=== PATIENT | female | born 1940 | race Caucasian/White ===

== ENCOUNTER 2019-10-16 17:00 | Inpatient (IN) | payer MEDICARE, BC, MEDICAID ==
[2019-10-16] MEDS ORDERED: Sodium Chloride 0.9% 10 ML Syringe FLUSH PRN (17:12)
[2019-10-16 18:17] LABS: ANION GAP 14.4 mmol/L (5-15); CHLORIDE,CL 102 mmol/L (98-115); SODIUM,NA 144 mmol/L (136-145)
[2019-10-16] MEDS ORDERED: methylPREDNISolone Sodium Succinate 125 MG/2 ML SDV IVPUSH ONE (19:28)
[2019-10-16] MEDS: Albuterol/Ipratropium 3.0-0.5 MG/3 ML Neb Soln NEB SCH ×2 (20:34→21:33)
[2019-10-16] MEDS: Piperacillin/Tazobactam/Dext 3.375 GM in Premix Bag 1 BAG IV SCH (20:40)
[2019-10-16] MEDS ORDERED: Acetaminophen 325 MG Tab PO PRN (20:41)
[2019-10-16] MEDS ORDERED: Trolamine Salicylate/Aloe Vera 10% Crm 85 GM Tube TOP PRN (20:41)
[2019-10-16] MEDS ORDERED: Sodium Chloride 0.9% 250 ML ONE (20:43)
[2019-10-16] MEDS: Insulin Aspart 100 Units/ML 3 ML Pen SUBCUT SCH ×2 (21:22→22:15)
[2019-10-16] MEDS: Donepezil 10 MG Tab PO SCH (22:05)
[2019-10-16] MEDS: Acetaminophen 650 MG Tab.ER PO SCH (22:05)
[2019-10-16] MEDS: Carboxymethylcellulose Sodium 0.5% Ophth Soln 15 ML Bottle EYEBOTH SCH (22:07)
[2019-10-16] MEDS: OLANZapine 5 MG Tab PO SCH (22:08)
[2019-10-17] MEDS: Albuterol/Ipratropium 3.0-0.5 MG/3 ML Neb Soln NEB SCH ×6 (01:53→20:44)
[2019-10-17] MEDS: Piperacillin/Tazobactam/Dext 3.375 GM in Premix Bag 1 BAG IV SCH ×3 (01:53→14:01)
[2019-10-17] MEDS: Insulin Aspart 100 Units/ML 3 ML Pen SUBCUT SCH ×4 (07:40→21:04)
[2019-10-17 07:51] LABS: ANION GAP 12.1 mmol/L (5-15)
[2019-10-17 08:05] LABS: HEMOGLOBIN A1C 5.7 % (4.3-5.7)
[2019-10-17] MEDS: Aspirin 81 MG Tab.EC PO SCH (08:41)
[2019-10-17] MEDS: Folic Acid 1 MG Tab PO SCH (08:41)
[2019-10-17] MEDS: Potassium Chloride 10 MEQ Tab.ER PO SCH ×2 (08:41→17:39)
[2019-10-17] MEDS: Oxybutynin 5 MG Tab.ER PO SCH (08:41)
[2019-10-17] MEDS: Cholecalciferol (Vitamin D3) 25 MCG Tab PO SCH (08:42)
[2019-10-17] MEDS: Acetaminophen 650 MG Tab.ER PO SCH ×3 (08:42→20:43)
[2019-10-17] MEDS: buPROPion 150 MG Tab.ER PO SCH (08:43)
[2019-10-17] MEDS: Lisinopril 20 MG Tab PO SCH (08:43)
[2019-10-17] MEDS: Donepezil 10 MG Tab PO SCH ×2 (08:43→20:44)
[2019-10-17] MEDS: Carboxymethylcellulose Sodium 0.5% Ophth Soln 15 ML Bottle EYEBOTH SCH ×3 (08:49→21:30)
[2019-10-17] MEDS ORDERED: Non-Formulary Medication 1 Each (Mineral Oil/Petrolatum 1 APPLIC) TOP SCH (09:00)
[2019-10-17] MEDS ORDERED: buPROPion 300 MG Tab.ER PO SCH (09:00)
--- NOTE | 2019-10-17 12:23 | PCM.PN ---
- General Info Date of Service: 10/17/19 Functional Status: Reports: Pain Controlled, Tolerating Diet, Ambulating, Other (O2 Saturations ambulatory room air 95 to 97%). Denies: New Symptoms - Review of Systems General: Denies: Fever, Weakness, Fatigue, Malaise, Chills HEENT: Reports: No Symptoms Pulmonary: Reports: Cough. Denies: Shortness of Breath, Sputum Cardiovascular: Reports: Edema. Denies: Dyspnea on Exertion - Patient Data Vitals - Most Recent: Last Vital Signs Temp 96.8 F 10/17/19 10:53 Pulse 70 10/17/19 10:53 Resp 16 10/17/19 10:53 BP 121/53 L 10/17/19 10:53 Pulse Ox 92 L 10/17/19 10:53 Weight - Most Recent: 233 lb 12.8 oz I&O - Last 24 Hours: Intake & Output 10/16/19 10/17/19 10/17/19 22:59 06:59 14:59 Intake Total 475 200 Output Total 500 900 Balance -25 -700 Lab Results Last 24 Hours: Laboratory Results - last 24 hr 10/16/19 10/16/19 10/16/19 Range/Units 17:45 17:45 17:45 WBC 8.04 (5.00-10.00) 10^3/uL RBC 3.40 L (3.80-5.50) 10^6/uL Hgb 11.5 L (12.0-16.0) g/dL Hct 36.6 L (37.0-47.0) % MCV 107.6 H (82.0-92.0) fL MCH 33.8 H (27.0-31.0) pg MCHC 31.4 L (32.0-36.0) g/dL RDW 15.7 H (11.5-14.5) % Plt Count 161 (150-400) 10^3/uL MPV 9.5 (7.4-10.4) fL Immature Gran % (Auto) 0.2 (0.0-5.0) % Neut % (Auto) 81.6 H (50.0-70.0) % Lymph % (Auto) 8.5 L (20.0-40.0) % Lane % (Auto) 7.1 (2.0-8.0) % Eos % (Auto) 2.2 (1.0-3.0) % Baso % (Auto) 0.4 (0.0-1.0) % Immature Gran # (Auto) 0.02 (0.00-0.50) 10^3/uL Neut # (Auto) 6.56 (2.50-7.00) 10^3/uL Lymph # (Auto) 0.68 L (1.00-4.00) 10^3/uL Lane # (Auto) 0.57 (0.10-0.80) 10^3/uL Eos # (Auto) 0.18 (0.10-0.30) 10^3/uL Baso # (Auto) 0.03 (0.00-0.10) 10^3/uL Macrocytosis 1+ slight ESR (0-20) mm/hr Sodium 144 (136-145) mmol/L Potassium 4.1 (3.3-5.3) mmol/L Chloride 102 (98-115) mmol/L Carbon Dioxide 31.7 (21.0-32.0) mmol/L Anion Gap 14.4 (5-15) mmol/L BUN 24 (6-25) mg/dL Creatinine 1.36 H (0.51-1.17) mg/dL Est Cr Clr Drug Dosing TNP Estimated GFR (MDRD) 37 mL/min Glucose 51 L (75 - 99) mg/dL POC Glucose (74-106) mg/dl Hemoglobin A1c (4.3-5.7) % Lactic Acid (0.4-2.0) mmol/L Calcium 10.0 (8.7-10.3) mg/dL B-Natriuretic Peptide 123 H (0-100) pg/mL 10/16/19 10/16/19 10/16/19 Range/Units 17:45 17:45 18:34 WBC (5.00-10.00) 10^3/uL RBC (3.80-5.50) 10^6/uL Hgb (12.0-16.0) g/dL Hct (37.0-47.0) % MCV (82.0-92.0) fL MCH (27.0-31.0) pg MCHC (32.0-36.0) g/dL RDW (11.5-14.5) % Plt Count (150-400) 10^3/uL MPV (7.4-10.4) fL Immature Gran % (Auto) (0.0-5.0) % Neut % (Auto) (50.0-70.0) % Lymph % (Auto) (20.0-40.0) % Lane % (Auto) (2.0-8.0) % Eos % (Auto) (1.0-3.0) % Baso % (Auto) (0.0-1.0) % Immature Gran # (Auto) (0.00-0.50) 10^3/uL Neut # (Auto) (2.50-7.00) 10^3/uL Lymph # (Auto) (1.00-4.00) 10^3/uL Lane # (Auto) (0.10-0.80) 10^3/uL Eos # (Auto) (0.10-0.30) 10^3/uL Baso # (Auto) (0.00-0.10) 10^3/uL Macrocytosis ESR 49 H (0-20) mm/hr Sodium (136-145) mmol/L Potassium (3.3-5.3) mmol/L Chloride (98-115) mmol/L Carbon Dioxide (21.0-32.0) mmol/L Anion Gap (5-15) mmol/L BUN (6-25) mg/dL Creatinine (0.51-1.17) mg/dL Est Cr Clr Drug Dosing Estimated GFR (MDRD) mL/min Glucose (75 - 99) mg/dL POC Glucose 80 (74-106) mg/dl Hemoglobin A1c (4.3-5.7) % Lactic Acid 1.5 (0.4-2.0) mmol/L Calcium (8.7-10.3) mg/dL B-Natriuretic Peptide (0-100) pg/mL 10/16/19 10/17/19 10/17/19 Range/Units 21:16 07:15 07:15 WBC 6.24 (5.00-10.00) 10^3/uL RBC 3.19 L (3.80-5.50) 10^6/uL Hgb 10.7 L (12.0-16.0) g/dL Hct 34.8 L (37.0-47.0) % MCV 109.1 H (82.0-92.0) fL MCH 33.5 H (27.0-31.0) pg MCHC 30.7 L (32.0-36.0) g/dL RDW 16.3 H (11.5-14.5) % Plt Count 153 (150-400) 10^3/uL MPV 10.2 (7.4-10.4) fL Immature Gran % (Auto) 0.3 (0.0-5.0) % Neut % (Auto) 79.2 H (50.0-70.0) % Lymph % (Auto) 8.8 L (20.0-40.0) % Lane % (Auto) 9.0 H (2.0-8.0) % Eos % (Auto) 2.2 (1.0-3.0) % Baso % (Auto) 0.5 (0.0-1.0) % Immature Gran # (Auto) 0.02 (0.00-0.50) 10^3/uL Neut # (Auto) 4.94 (2.50-7.00) 10^3/uL Lymph # (Auto) 0.55 L (1.00-4.00) 10^3/uL Lane # (Auto) 0.56 (0.10-0.80) 10^3/uL Eos # (Auto) 0.14 (0.10-0.30) 10^3/uL Baso # (Auto) 0.03 (0.00-0.10) 10^3/uL Macrocytosis 1+ slight ESR (0-20) mm/hr Sodium 143 (136-145) mmol/L Potassium 4.1 (3.3-5.3) mmol/L Chloride 103 (98-115) mmol/L Carbon Dioxide 32.0 (21.0-32.0) mmol/L Anion Gap 12.1 (5-15) mmol/L BUN 22 (6-25) mg/dL Creatinine 1.41 H (0.51-1.17) mg/dL Est Cr Clr Drug Dosing 28.63 Estimated GFR (MDRD) 36 mL/min Glucose 118 H (75 - 99) mg/dL POC Glucose 173 H (74-106) mg/dl Hemoglobin A1c 5.7 (4.3-5.7) % Lactic Acid (0.4-2.0) mmol/L Calcium 9.4 (8.7-10.3) mg/dL B-Natriuretic Peptide (0-100) pg/mL 10/17/19 10/17/19 Range/Units 07:15 07:36 WBC (5.00-10.00) 10^3/uL RBC (3.80-5.50) 10^6/uL Hgb (12.0-16.0) g/dL Hct (37.0-47.0) % MCV (82.0-92.0) fL MCH (27.0-31.0) pg MCHC (32.0-36.0) g/dL RDW (11.5-14.5) % Plt Count (150-400) 10^3/uL MPV (7.4-10.4) fL Immature Gran % (Auto) (0.0-5.0) % Neut % (Auto) (50.0-70.0) % Lymph % (Auto) (20.0-40.0) % Lane % (Auto) (2.0-8.0) % Eos % (Auto) (1.0-3.0) % Baso % (Auto) (0.0-1.0) % Immature Gran # (Auto) (0.00-0.50) 10^3/uL Neut # (Auto) (2.50-7.00) 10^3/uL Lymph # (Auto) (1.00-4.00) 10^3/uL Lane # (Auto) (0.10-0.80) 10^3/uL Eos # (Auto) (0.10-0.30) 10^3/uL Baso # (Auto) (0.00-0.10) 10^3/uL Macrocytosis ESR 41 H (0-20) mm/hr Sodium (136-145) mmol/L Potassium (3.3-5.3) mmol/L Chloride (98-115) mmol/L Carbon Dioxide (21.0-32.0) mmol/L Anion Gap (5-15) mmol/L BUN (6-25) mg/dL Creatinine (0.51-1.17) mg/dL Est Cr Clr Drug Dosing Estimated GFR (MDRD) mL/min Glucose (75 - 99) mg/dL POC Glucose 104 (74-106) mg/dl Hemoglobin A1c (4.3-5.7) % Lactic Acid (0.4-2.0) mmol/L Calcium (8.7-10.3) mg/dL B-Natriuretic Peptide (0-100) pg/mL Arpan Results Last 24 Hours: Microbiology 10/16/19 21:15 Influenza Type A Antigen Screen - Final Nasal, Unspecified NEGATIVE INFLUENZA A VIRUS AG REFERENCE RANGE: NEGATIVE Influenza Type B Antigen Screen - Final NEGATIVE INFLUENZA B VIRUS AG REFERENCE RANGE: NEGATIVE Med Orders - Current: Current Medications Acetaminophen (Tylenol) 650 mg PO Q4H PRN PRN Reason: Pain or fever Acetaminophen (Tylenol Arthritis Pain) 650 mg PO TID [facility] Last Admin: 10/17/19 08:42 Dose: 650 mg Albuterol/Ipratropium (Duoneb 3.0-0.5 Mg/3 Ml) 3 ml NEB Q4HRRT [facility] Last Admin: 10/17/19 09:12 Dose: 3 ml Artificial Tears (Refresh Tears 0.5%) 0 ml EYEBOTH TID [facility] Last Admin: 10/17/19 08:49 Dose: 1 drop Aspirin (Halfprin) 81 mg PO DAILY [facility] Last Admin: 10/17/19 08:41 Dose: 81 mg Bupropion HCl (Wellbutrin Xl) 300 mg PO DAILY [facility] Last Admin: 10/17/19 08:43 Dose: 300 mg Cholecalciferol (Vitamin D3) 50 mcg PO DAILY [facility] Last Admin: 10/17/19 08:42 Dose: 50 mcg Donepezil HCl (Aricept) 10 mg PO BID [facility] Last Admin: 10/17/19 08:43 Dose: 10 mg Folic Acid (Folic Acid) 1 mg PO DAILY [facility] Last Admin: 10/17/19 08:41 Dose: 1 mg Guaifenesin/Phenylephrine HCl (Robitussin Dm) 10 ml PO Q4H PRN PRN Reason: Cough Piperacillin/Tazobactam/ (Dextrose 3.375 gm/ Premix) 50 mls @ 100 mls/hr IV Q6H [facility] Last Admin: 10/17/19 07:07 Dose: 100 mls/hr Insulin Aspart (Novolog) 0 unit SUBCUT WITHMEALSANDBED [facility]; Protocol Last Admin: 10/17/19 07:40 Dose: Not Given Lamotrigine (Lamotrigine) 100 mg PO DAILY@2000 [facility] Lisinopril (Prinivil) 20 mg PO DAILY [facility] Last Admin: 10/17/19 08:43 Dose: 20 mg Multivitamins/Minerals (Ocuvite) 1 each PO DAILY@1800 [facility] Non-Formulary Medication (Dulaglutide [Trulicity]) 1.5 mg SUBCUT WE@2000 [facility] Non-Formulary Medication (Mineral Oil/Petrolatum) 1 applic TOP DAILY [facility] Olanzapine (Zyprexa) 15 mg PO DAILY@2100 [facility] Last Admin: 10/16/19 22:08 Dose: 15 mg Omeprazole (Omeprazole) 20 mg PO Q48H [facility] Oxybutynin Chloride (Oxybutynin Er) 10 mg PO DAILY [facility] Last Admin: 10/17/19 08:41 Dose: 10 mg Potassium Chloride (Klor-Con 10) 20 meq PO DAILY@1800 [facility] Potassium Chloride (Klor-Con 10) 40 meq PO DAILY [facility] Last Admin: 10/17/19 08:41 Dose: 40 meq Simvastatin (Zocor) 10 mg PO DAILY@1800 [facility] Sodium Chloride (Saline Flush) 10 ml FLUSH Q8HR PRN PRN Reason: keep vein open Trolamine Salicylate (Aspercreme 10%) 0 gm TOP TID PRN PRN Reason: Pain Discontinued Medications Bupropion HCl (Wellbutrin Xl) 300 mg PO DAILY [facility] Sodium Chloride (Normal Saline) Confirm Administered Dose 250 mls @ as directed .ROUTE .STK-MED ONE Stop: 10/16/19 20:44 Last Admin: 10/16/19 20:20 Dose: 25 mls/hr Methotrexate (Methotrexate) 10 mg PO Q7D [facility] Methylprednisolone Sodium Succinate (Solu-Medrol) 40 mg IVPUSH ONETIME ONE Stop: 10/16/19 19:29 Last Admin: 10/16/19 20:39 Dose: 40 mg Sepsis Event Note - Evaluation Sepsis Screening Result: No Definite Risk - Focused Exam Vital Signs: Vital Signs Temp Pulse Resp BP BP BP Pulse Ox 10/17/19 10:53 96.8 F 70 16 121/53 L 92 L 10/17/19 09:12 76 10/17/19 09:10 10/17/19 08:43 116/64 10/17/19 06:52 96.7 F 76 22 H 103/58 L 92 L 10/17/19 05:40 76 10/17/19 03:00 97.9 F 72 20 108/49 L 94 L 10/17/19 01:54 74 Pulse Ox 10/17/19 10:53 10/17/19 09:12 93 L 10/17/19 09:10 93 L 10/17/19 08:43 10/17/19 06:52 10/17/19 05:40 94 L 10/17/19 03:00 10/17/19 01:54 Date Exam was Performed: 10/17/19 Time Exam was Performed: 11:46 - Problem List Review Problem List Initiated/Reviewed/Updated: Yes - Plan Plan:: History summary Ms Friedman is severely obese 79-year-old female who resides in LTC was admitted into inpatient status by Jocelynn Burnett NP secondary hypoxia related to ongoing ~3 day of cough, mucus production. custodial records reported patient having increased shortness of breath, mucus production with temperatures up to 101. Patient has approximately 20-year pack year history of smoker however quit approximately 5 years ago. She denotes underlying COPD and uses CESAR/AC PRN, which has not provided her any relief of her shortness of breath. Chest x-ray no acute processes, no cardiomegaly. No echocardiogram on file Hospital course to date This morning patient ambulatory in room oxygen saturations 95 to 97% on room air. Yesterday upon admission had blood sugar of 51. Negative influenza A/B, normal white count however elevated neutrophilia around 82%, ESR high however trending down, creatinine 1.41--beta from 1.36 on admission. BNP 123 normal lactic acid, Chest x-ray no acute processes, no cardiomegaly, however review chest x-rays 2018 demonstrated borderline cardiomegaly Primary hospital problems --Rule out obesity hypoventilation syndrome, serum bicarbonate level and ABG to assess for any hypercapnia --Questionable COPD --Type 2 DM: with hypoglycema, HOLD Long acting insulin, reduce prandial by 25 % today. home regimen includes, Novolog 14 units AM, 22 units at noon, 14 units PM; Trulicity 1.5mg weekly, Tresiba 76 units daily --Anemia, macrocytic with anisocytosis, elevated retic ~6 months ago, upon discharge will provide PCP recommendations Chronic hospital problems --Chronic ischemic heart disease: ASA 81mg daily --Essential HTN: Lisinopril 20mg daily --Pedal edema/weight gain: Furosemide 20mg daily, metolazone 2.5mg twice a week --Hypokalemia: Potassium 40meq in the AM and 20meq in the PM --Chronic venous insufficiency --Pure hypercholesterolemia: Simvastatin 10mg daily --GERD: Omeprazole 20mg EVERY OTHER DAY --Rheumatoid arthritis: seropositive rheumatoid arthritis, Methotrexate 10mg weekly, prednisone 5mg daily, Acetaminophen ER 650mg three times daily Folic acid 1mg daily for folate deficiency related to methotrexate --Mixed incontinence: oxybutynin ER 10mg daily --Bipolar II disorder/Schizophrenia/Personality disorder: Olanzapine 15mg daily and lamotrigine 100mg daily, Dr Brooks follows. --Drug induced subacute dyskinesia --Alzheimer's disease/Dementia: Donepezil 10mg twice daily --HERNAN: Wellbutrin XL 300mg daily --H/O malignant neoplasm of the breast --Supplements: Vitamin D 2000 units daily --Macular degeneration: Ocuvite daily and Refresh tears Disposition/overall plan --Rule out obesity hypoventilation syndrome, serum bicarbonate level and ABG to assess for any hypercapnia --T2 DM with hypoglycema, HOLD Long acting insulin, reduce prandial by 25% today. --Potential discharge for morning
[2019-10-17 12:46] LABS: BASE EXCESS ARTERIAL 6 mmol/L (-2-3); O2 SATURATION ARTERIAL 93 % (95-98); PCO2 ARTERIAL 58 mmHG (35-45)
[2019-10-17 12:48] LABS: O2 DELIVERY DEVICE NASAL CANNULA; O2 FLOW RATE 2 L/min
[2019-10-17 12:54] LABS: PO2 ARTERIAL 74 mmHG (80-105)
[2019-10-17] MEDS: Lutein/Minerals/Vitamins A, C & E Tab PO SCH (17:39)
[2019-10-17] MEDS: Simvastatin 10 MG Tab PO SCH (17:39)
[2019-10-17] MEDS: guaiFENesin/Dextromethorphan 100-10 MG/5 ML Soln 5 ML Cup PO PRN (20:44)
[2019-10-17] MEDS: OLANZapine 5 MG Tab PO SCH (20:44)
[2019-10-17] MEDS: lamoTRIgine 100 MG Tab PO SCH (20:44)
[2019-10-17] MEDS ORDERED: Insulin Glargine,Human Rec. Analog 100 Units/ML 3 ML Pen SUBCUT ONE (21:00)
[2019-10-18] MEDS: Albuterol/Ipratropium 3.0-0.5 MG/3 ML Neb Soln NEB SCH ×6 (01:29→22:54)
[2019-10-18] MEDS: guaiFENesin/Dextromethorphan 100-10 MG/5 ML Soln 5 ML Cup PO PRN ×2 (01:36→23:03)
[2019-10-18] MEDS: Insulin Aspart 100 Units/ML 3 ML Pen SUBCUT SCH ×4 (07:58→21:05)
[2019-10-18] MEDS: Cholecalciferol (Vitamin D3) 25 MCG Tab PO SCH (08:28)
[2019-10-18] MEDS: Potassium Chloride 10 MEQ Tab.ER PO SCH ×2 (08:28→17:35)
[2019-10-18] MEDS: Acetaminophen 650 MG Tab.ER PO SCH ×3 (08:29→20:42)
[2019-10-18] MEDS: Aspirin 81 MG Tab.EC PO SCH (08:29)
[2019-10-18] MEDS: buPROPion 150 MG Tab.ER PO SCH (08:29)
[2019-10-18] MEDS: Folic Acid 1 MG Tab PO SCH (08:29)
[2019-10-18] MEDS: Oxybutynin 5 MG Tab.ER PO SCH (08:29)
[2019-10-18] MEDS: Donepezil 10 MG Tab PO SCH ×2 (08:30→20:43)
[2019-10-18] MEDS: Omeprazole 20 MG Cap.CR PO SCH (08:30)
[2019-10-18] MEDS: Lisinopril 20 MG Tab PO SCH (08:32)
[2019-10-18] MEDS: Carboxymethylcellulose Sodium 0.5% Ophth Soln 15 ML Bottle EYEBOTH SCH ×3 (09:05→20:52)
[2019-10-18] MEDS ORDERED: Albuterol 0.083% 2.5 MG/3 ML Neb Soln NEB PRN (10:10)
--- NOTE | 2019-10-18 10:12 | PCM.PN ---
- General Info Date of Service: 10/18/19 Functional Status: Reports: Pain Controlled, Tolerating Diet, Urinating. Denies : Ambulating - Review of Systems General: Denies: Fever, Weakness, Fatigue, Malaise, Chills HEENT: Reports: No Symptoms Pulmonary: Reports: Shortness of Breath, Cough, Wheezing. Denies: Sputum Cardiovascular: Reports: Dyspnea on Exertion. Denies: Palpitations, Orthopnea, Lightheadedness Gastrointestinal: Reports: No Symptoms Genitourinary: Reports: No Symptoms Musculoskeletal: Reports: No Symptoms Skin: Reports: No Symptoms Neurological: Denies: Confusion Psychiatric: Reports: No Symptoms - Patient Data Vitals - Most Recent: Last Vital Signs Temp 98.3 F 10/18/19 06:22 Pulse 87 10/18/19 06:22 Resp 20 10/18/19 06:22 BP 140/70 10/18/19 08:32 Pulse Ox 80 L 10/18/19 08:55 Weight - Most Recent: 233 lb 12.8 oz I&O - Last 24 Hours: Intake & Output 10/17/19 10/18/19 10/18/19 22:59 06:59 14:59 Intake Total 975 0 Output Total 600 350 Balance 375 -350 Lab Results Last 24 Hours: Laboratory Results - last 24 hr 10/16/19 10/17/19 10/17/19 Range/Units 17:45 11:50 12:40 WBC (5.00-10.00) 10^3/uL RBC (3.80-5.50) 10^6/uL Hgb (12.0-16.0) g/dL Hct (37.0-47.0) % MCV (82.0-92.0) fL MCH (27.0-31.0) pg MCHC (32.0-36.0) g/dL RDW (11.5-14.5) % RDW Coeff of Holli Plt Count (150-400) 10^3/uL MPV (7.4-10.4) fL Neutrophils % (Manual) (50-70) % Lymphocytes % (Manual) (20-40) % Monocytes % (Manual) (2-8) % Absolute Neutrophils Lymphocytes # (Manual) Monocytes # (Manual) ABG pH 7.35 (7.35-7.45) ABG pCO2 58 H (35-45) mmHG ABG pO2 74 L (80-105) mmHG ABG HCO3 32.0 H (22-26) mmol/L ABG Total CO2 34 H (23-27) mmol/L ABG O2 Saturation 93 L (95-98) % ABG Base Excess 6 H (-2-3) mmol/L O2 Delivery Device Nasal cannula Oxygen Flow Rate 2 L/min POC Glucose 241 H (74-106) mg/dl Procalcitonin 0.06 (<0.10) ng/mL 10/17/19 10/18/19 10/18/19 Range/Units 17:41 07:15 07:56 WBC 7.04 (5.00-10.00) 10^3/uL RBC 3.35 L (3.80-5.50) 10^6/uL Hgb 11.5 L (12.0-16.0) g/dL Hct 36.3 L (37.0-47.0) % MCV 108.4 H (82.0-92.0) fL MCH 34.3 H (27.0-31.0) pg MCHC 31.7 L (32.0-36.0) g/dL RDW 16.7 H (11.5-14.5) % RDW Coeff of Holli 16.7 Plt Count 125 L (150-400) 10^3/uL MPV 10.2 (7.4-10.4) fL Neutrophils % (Manual) 77 H (50-70) % Lymphocytes % (Manual) 11 L (20-40) % Monocytes % (Manual) 12 H (2-8) % Absolute Neutrophils 5.4208 Lymphocytes # (Manual) 0.7744 Monocytes # (Manual) 0.8448 ABG pH (7.35-7.45) ABG pCO2 (35-45) mmHG ABG pO2 (80-105) mmHG ABG HCO3 (22-26) mmol/L ABG Total CO2 (23-27) mmol/L ABG O2 Saturation (95-98) % ABG Base Excess (-2-3) mmol/L O2 Delivery Device Oxygen Flow Rate L/min POC Glucose 138 H 139 H (74-106) mg/dl Procalcitonin (<0.10) ng/mL Arpan Results Last 24 Hours: Microbiology 10/17/19 08:50 Gram Stain - Final Sputum - Expectorated 10/16/19 18:40 Aerobic Blood Culture - Preliminary Blood - Venous - Lab Draw NO GROWTH AFTER 1 DAY Anaerobic Blood Culture - Preliminary NO GROWTH AFTER 1 DAY 10/16/19 17:45 Aerobic Blood Culture - Preliminary Blood - Venous NO GROWTH AFTER 1 DAY Anaerobic Blood Culture - Preliminary NO GROWTH AFTER 1 DAY Med Orders - Current: Current Medications Acetaminophen (Tylenol) 650 mg PO Q4H PRN PRN Reason: Pain or fever Acetaminophen (Tylenol Arthritis Pain) 650 mg PO TID [facility] Last Admin: 10/18/19 08:29 Dose: 650 mg Albuterol/Ipratropium (Duoneb 3.0-0.5 Mg/3 Ml) 3 ml NEB Q4HRRT [facility] Last Admin: 10/18/19 09:12 Dose: 3 ml Artificial Tears (Refresh Tears 0.5%) 0 ml EYEBOTH TID [facility] Last Admin: 10/18/19 09:05 Dose: 1 drop Aspirin (Halfprin) 81 mg PO DAILY [facility] Last Admin: 10/18/19 08:29 Dose: 81 mg Bupropion HCl (Wellbutrin Xl) 300 mg PO DAILY [facility] Last Admin: 10/18/19 08:29 Dose: 300 mg Cholecalciferol (Vitamin D3) 50 mcg PO DAILY [facility] Last Admin: 10/18/19 08:28 Dose: 50 mcg Donepezil HCl (Aricept) 10 mg PO BID [facility] Last Admin: 10/18/19 08:30 Dose: 10 mg Folic Acid (Folic Acid) 1 mg PO DAILY [facility] Last Admin: 10/18/19 08:29 Dose: 1 mg Guaifenesin/Phenylephrine HCl (Robitussin Dm) 10 ml PO Q4H PRN PRN Reason: Cough Last Admin: 10/18/19 01:36 Dose: 10 ml Insulin Aspart (Novolog) 0 unit SUBCUT WITHMEALSANDBED [facility]; Protocol Last Admin: 10/18/19 07:58 Dose: Not Given Lamotrigine (Lamotrigine) 100 mg PO DAILY@2000 [facility] Last Admin: 10/17/19 20:44 Dose: 100 mg Lisinopril (Prinivil) 20 mg PO DAILY [facility] Last Admin: 10/18/19 08:32 Dose: 20 mg Multivitamins/Minerals (Ocuvite) 1 each PO DAILY@1800 [facility] Last Admin: 10/17/19 17:39 Dose: 1 each Non-Formulary Medication (Dulaglutide [Trulicity]) 1.5 mg SUBCUT WE@2000 [facility] Non-Formulary Medication (Mineral Oil/Petrolatum) 1 applic TOP DAILY [facility] Olanzapine (Zyprexa) 15 mg PO DAILY@2100 [facility] Last Admin: 10/17/19 20:44 Dose: 15 mg Omeprazole (Omeprazole) 20 mg PO Q48H [facility] Last Admin: 10/18/19 08:30 Dose: 20 mg Oxybutynin Chloride (Oxybutynin Er) 10 mg PO DAILY [facility] Last Admin: 10/18/19 08:29 Dose: 10 mg Potassium Chloride (Klor-Con 10) 20 meq PO DAILY@1800 [facility] Last Admin: 10/17/19 17:39 Dose: 20 meq Potassium Chloride (Klor-Con 10) 40 meq PO DAILY [facility] Last Admin: 10/18/19 08:28 Dose: 40 meq Simvastatin (Zocor) 10 mg PO DAILY@1800 [facility] Last Admin: 10/17/19 17:39 Dose: 10 mg Sodium Chloride (Saline Flush) 10 ml FLUSH Q8HR PRN PRN Reason: keep vein open Trolamine Salicylate (Aspercreme 10%) 0 gm TOP TID PRN PRN Reason: Pain Discontinued Medications Bupropion HCl (Wellbutrin Xl) 300 mg PO DAILY [facility] Piperacillin/Tazobactam/ (Dextrose 3.375 gm/ Premix) 50 mls @ 100 mls/hr IV Q6H [facility] Last Admin: 10/17/19 14:01 Dose: 100 mls/hr Sodium Chloride (Normal Saline) Confirm Administered Dose 250 mls @ as directed .ROUTE .STK-MED ONE Stop: 10/16/19 20:44 Last Admin: 10/16/19 20:20 Dose: 25 mls/hr Insulin Glargine (Lantus Solostar) 15 units SUBCUT ONETIME ONE Stop: 10/17/19 21:01 Last Admin: 10/17/19 21:03 Dose: 15 units Methotrexate (Methotrexate) 10 mg PO Q7D [facility] Methylprednisolone Sodium Succinate (Solu-Medrol) 40 mg IVPUSH ONETIME ONE Stop: 10/16/19 19:29 Last Admin: 10/16/19 20:39 Dose: 40 mg - Exam Quality Assessment: Supplemental Oxygen General: Alert, Oriented, Cooperative, No Acute Distress Lungs: Rhonchi, Wheezing Cardiovascular: Regular Rate, Regular Rhythm GI/Abdominal Exam: No: Distended, Guarding, Rigid (Female) Exam: Deferred Extremities: No Pedal Edema Peripheral Pulses: 2+: Radial (L), Radial (R) Skin: Warm, Dry, Intact Psy/Mental Status: Alert, Normal Affect, Normal Mood Sepsis Event Note - Evaluation Sepsis Screening Result: No Definite Risk - Focused Exam Vital Signs: Vital Signs Temp Pulse Resp BP BP Pulse Ox Pulse Ox 10/18/19 08:55 10/18/19 08:32 140/70 10/18/19 06:22 98.3 F 87 20 139/69 91 L 10/18/19 05:23 84 92 L 10/18/19 05:21 92 L 10/18/19 03:30 90 L 10/18/19 03:00 98.5 F 82 20 136/70 86 L 10/18/19 01:31 80 10/17/19 23:00 98.3 F 82 20 133/62 92 L Pulse Ox 10/18/19 08:55 80 L 10/18/19 08:32 10/18/19 06:22 10/18/19 05:23 10/18/19 05:21 10/18/19 03:30 10/18/19 03:00 10/18/19 01:31 10/17/19 23:00 Date Exam was Performed: 10/18/19 Time Exam was Performed: 10:57 - Problem List Review Problem List Initiated/Reviewed/Updated: Yes - My Orders Last 24 Hours: My Active Orders 10/18/19 09:41 CXR [Chest 2V] [CR] Routine - Plan Plan:: History summary Ms Friedman is severely obese 79-year-old female who resides in LTC was admitted into inpatient status by Jocelynn Burnett NP secondary hypoxia related to ongoing ~3 day of cough, mucus production. halfway records reported patient having increased shortness of breath, mucus production with temperatures up to 101. Patient has approximately 20-year pack year history of smoker however quit approximately 5 years ago. She denotes underlying COPD and uses CESAR/AC PRN, which has not provided her any relief of her shortness of breath. Chest x-ray no acute processes, no cardiomegaly. No echocardiogram on file Hospital course to date Day 1: This morning patient ambulatory in room oxygen saturations 95 to 97% on room air. Yesterday upon admission had blood sugar of 51. Negative influenza A /B, normal white count however elevated neutrophilia around 82%, ESR high however trending down, creatinine 1.41--beta from 1.36 on admission. BNP 123 normal lactic acid, Chest x-ray no acute processes, no cardiomegaly, however review chest x-rays 2018 demonstrated borderline cardiomegaly Day 2: Ambulate the patient without oxygen desats 80, response to 92% with oxygen,. ABG yesterday concerning for hypercapnia [place] sodium bicarb and CO2- -suggetive of OHS however no formal PFTs, overnight oximetry and with recent URI along with nonambulatory state due to hip--mixed picture. Overall feels better, ongoing cough with rhonchus today. Primary hospital problems --Suspect OHS with multifactorial components i.e obestiy, limited mobility, underlying pulm dz/cardiac dz with suspect CHF, JOSHUA, hypercapnia. --Questionable COPD --Heart Failure, --Type 2 DM: resolved, resume Long acting insulin, and prandial home regimen includes, Novolog 14 units AM, 22 units at noon, 14 units PM; Trulicity 1.5mg weekly, Tresiba 76 units daily --Anemia, macrocytic with anisocytosis, elevated retic ~6 months ago, upon discharge will provide PCP recommendations Chronic hospital problems --Chronic ischemic heart disease: ASA 81mg daily --Essential HTN: Lisinopril 20mg daily --Pedal edema/weight gain: Furosemide 20mg daily, metolazone 2.5mg twice a week --Hypokalemia: Potassium 40meq in the AM and 20meq in the PM --Chronic venous insufficiency --Pure hypercholesterolemia: Simvastatin 10mg daily --GERD: Omeprazole 20mg EVERY OTHER DAY --Rheumatoid arthritis: seropositive rheumatoid arthritis, Methotrexate 10mg weekly, prednisone 5mg daily, Acetaminophen ER 650mg three times daily Folic acid 1mg daily for folate deficiency related to methotrexate --Mixed incontinence: oxybutynin ER 10mg daily --Bipolar II disorder/Schizophrenia/Personality disorder: Olanzapine 15mg daily and lamotrigine 100mg daily, Dr Todd corbett. --Drug induced subacute dyskinesia --Alzheimer's disease/Dementia: Donepezil 10mg twice daily --HERNAN: Wellbutrin XL 300mg daily --H/O malignant neoplasm of the breast --Supplements: Vitamin D 2000 units daily --Macular degeneration: Ocuvite daily and Refresh tears Disposition/overall plan --Reduce duo nebs to Q6 as Ipratropium likely causing paradoxical bronchospasms --Add MONO therapy Albuterol PRN --Add Pulmicort --Repeat Cxr today --Lasix today --BNP --Will c/s [facility] for overnight oximetry as I suspect she may need CPAP due to her daytime hypercapnia, --Potential discharge for morning, will need Oxygen
--- NOTE | 2019-10-18 10:31 | CR ---
[id number] RAD/RAD Chest PA And Lateral EXAM: FRONTAL AND LATERAL CHEST INDICATION: COUGH COMPARISON: May 25, 2012. DISCUSSION: Cardiomegaly with mild to moderate interstitial edema and minimal bilateral pleural effusions compatible with congestive heart failure. Hyperinflation suggest chronic obstructive pulmonary disease. Degenerative changes in the shoulder. IMPRESSION: 1. Mild to moderate congestive heart failure. Alvaro Dougherty MD 10/18/19 1030 Thank you for allowing us to participate in the care of your patient.
[2019-10-18] MEDS: Budesonide 0.5 MG/2 ML Neb Susp NEB SCH ×2 (10:57→20:57)
[2019-10-18] MEDS: Furosemide 40 MG/4 ML VIAL IVPUSH SCH (11:38)
[2019-10-18] MEDS: Simvastatin 10 MG Tab PO SCH (17:35)
[2019-10-18] MEDS: Lutein/Minerals/Vitamins A, C & E Tab PO SCH (17:35)
[2019-10-18] MEDS: lamoTRIgine 100 MG Tab PO SCH (20:41)
[2019-10-18] MEDS: OLANZapine 5 MG Tab PO SCH (20:43)
[2019-10-19] MEDS: Albuterol/Ipratropium 3.0-0.5 MG/3 ML Neb Soln NEB SCH ×4 (05:29→22:13)
[2019-10-19] MEDS: guaiFENesin/Dextromethorphan 100-10 MG/5 ML Soln 5 ML Cup PO PRN ×2 (05:43→21:16)
[2019-10-19] MEDS: Budesonide 0.5 MG/2 ML Neb Susp NEB SCH ×2 (07:19→20:55)
[2019-10-19] MEDS: Potassium Chloride 10 MEQ Tab.ER PO SCH ×2 (08:10→17:40)
[2019-10-19] MEDS: Oxybutynin 5 MG Tab.ER PO SCH (08:10)
[2019-10-19] MEDS: buPROPion 150 MG Tab.ER PO SCH (08:10)
[2019-10-19] MEDS: Cholecalciferol (Vitamin D3) 25 MCG Tab PO SCH (08:11)
[2019-10-19] MEDS: Aspirin 81 MG Tab.EC PO SCH (08:11)
[2019-10-19] MEDS: Folic Acid 1 MG Tab PO SCH (08:11)
[2019-10-19] MEDS: Donepezil 10 MG Tab PO SCH ×2 (08:11→21:13)
[2019-10-19] MEDS: Acetaminophen 650 MG Tab.ER PO SCH ×3 (08:13→21:13)
[2019-10-19] MEDS: Furosemide 40 MG/4 ML VIAL IVPUSH SCH (08:14)
[2019-10-19] MEDS: Carboxymethylcellulose Sodium 0.5% Ophth Soln 15 ML Bottle EYEBOTH SCH ×3 (08:17→21:10)
[2019-10-19] MEDS: Insulin Aspart 100 Units/ML 3 ML Pen SUBCUT SCH ×4 (08:18→21:24)
--- NOTE | 2019-10-19 09:19 | PCM.PN ---
- General Info Date of Service: 10/19/19 Functional Status: Reports: Tolerating Diet, New Symptoms, Incentive Spirometry (More of a dry barky type cough today). Denies: Pain Controlled - Review of Systems General: Denies: Fever, Weakness, Fatigue, Malaise HEENT: Reports: No Symptoms Pulmonary: Reports: Cough. Denies: Shortness of Breath, Sputum, Wheezing Cardiovascular: Reports: Dyspnea on Exertion, Orthopnea, Edema. Denies: Chest Pain Gastrointestinal: Reports: No Symptoms Genitourinary: Reports: No Symptoms Musculoskeletal: Reports: No Symptoms Skin: Reports: No Symptoms Neurological: Denies: Confusion Psychiatric: Denies: Confusion - Patient Data Vitals - Most Recent: Last Vital Signs Temp 96.8 F 10/19/19 06:24 Pulse 84 10/19/19 07:19 Resp 18 10/19/19 06:24 BP 114/60 10/19/19 06:24 Pulse Ox 93 L 10/19/19 07:19 Weight - Most Recent: 231 lb 2 oz I&O - Last 24 Hours: Intake & Output 10/18/19 10/19/19 10/19/19 22:59 06:59 14:59 Intake Total 500 150 Output Total 1075 200 Balance -575 -50 Lab Results Last 24 Hours: Laboratory Results - last 24 hr 10/18/19 10/18/19 10/18/19 Range/Units 07:15 11:58 15:50 POC Glucose 180 H 227 H (74-106) mg/dl B-Natriuretic Peptide 71 (0-100) pg/mL 10/18/19 10/18/19 10/19/19 Range/Units 17:34 20:54 07:34 POC Glucose 226 H 178 H 168 H (74-106) mg/dl B-Natriuretic Peptide (0-100) pg/mL Arpan Results Last 24 Hours: Microbiology 10/16/19 18:40 Aerobic Blood Culture - Preliminary Blood - Venous - Lab Draw NO GROWTH AFTER 2 DAYS Anaerobic Blood Culture - Preliminary NO GROWTH AFTER 2 DAYS 10/16/19 17:45 Aerobic Blood Culture - Preliminary Blood - Venous NO GROWTH AFTER 2 DAYS Anaerobic Blood Culture - Preliminary NO GROWTH AFTER 2 DAYS 10/17/19 08:50 Gram Stain - Final Sputum - Expectorated Med Orders - Current: Current Medications Acetaminophen (Tylenol) 650 mg PO Q4H PRN PRN Reason: Pain or fever Acetaminophen (Tylenol Arthritis Pain) 650 mg PO TID [facility] Last Admin: 10/19/19 08:13 Dose: 650 mg Albuterol (Proventil Neb Soln) 2.5 mg NEB Q2H PRN PRN Reason: sob Albuterol/Ipratropium (Duoneb 3.0-0.5 Mg/3 Ml) 3 ml NEB Q6HRRT [facility] Last Admin: 10/19/19 05:29 Dose: 3 ml Artificial Tears (Refresh Tears 0.5%) 0 ml EYEBOTH TID [facility] Last Admin: 10/19/19 08:17 Dose: 1 drop Aspirin (Halfprin) 81 mg PO DAILY [facility] Last Admin: 10/19/19 08:11 Dose: 81 mg Budesonide (Pulmicort) 0.5 mg NEB BIDRT [facility] Last Admin: 10/19/19 07:19 Dose: 0.5 mg Bupropion HCl (Wellbutrin Xl) 300 mg PO DAILY [facility] Last Admin: 10/19/19 08:10 Dose: 300 mg Cholecalciferol (Vitamin D3) 50 mcg PO DAILY [facility] Last Admin: 10/19/19 08:11 Dose: 50 mcg Donepezil HCl (Aricept) 10 mg PO BID [facility] Last Admin: 10/19/19 08:11 Dose: 10 mg Folic Acid (Folic Acid) 1 mg PO DAILY [facility] Last Admin: 10/19/19 08:11 Dose: 1 mg Furosemide (Lasix) 40 mg IVPUSH DAILY [facility] Last Admin: 10/19/19 08:14 Dose: 40 mg Guaifenesin/Phenylephrine HCl (Robitussin Dm) 10 ml PO Q4H PRN PRN Reason: Cough Last Admin: 10/19/19 05:43 Dose: 10 ml Insulin Aspart (Novolog) 0 unit SUBCUT WITHMEALSANDBED [facility]; Protocol Last Admin: 10/19/19 08:18 Dose: 2 units Lamotrigine (Lamotrigine) 100 mg PO DAILY@2000 [facility] Last Admin: 10/18/19 20:41 Dose: 100 mg Lisinopril (Prinivil) 20 mg PO DAILY [facility] Last Admin: 10/18/19 08:32 Dose: 20 mg Multivitamins/Minerals (Ocuvite) 1 each PO DAILY@1800 [facility] Last Admin: 10/18/19 17:35 Dose: 1 each Non-Formulary Medication (Mineral Oil/Petrolatum) 1 applic TOP DAILY [facility] Olanzapine (Zyprexa) 15 mg PO DAILY@2100 [facility] Last Admin: 10/18/19 20:43 Dose: 15 mg Omeprazole (Omeprazole) 20 mg PO Q48H [facility] Last Admin: 10/18/19 08:30 Dose: 20 mg Oxybutynin Chloride (Oxybutynin Er) 10 mg PO DAILY [facility] Last Admin: 10/19/19 08:10 Dose: 10 mg Trulicity 1.5mg/0. (5ml) 1 each SUBCUT WE@2000 [facility] Last Admin: 10/18/19 20:51 Dose: 1 each Potassium Chloride (Klor-Con 10) 20 meq PO DAILY@1800 [facility] Last Admin: 10/18/19 17:35 Dose: 20 meq Potassium Chloride (Klor-Con 10) 40 meq PO DAILY [facility] Last Admin: 10/19/19 08:10 Dose: 40 meq Simvastatin (Zocor) 10 mg PO DAILY@1800 [facility] Last Admin: 10/18/19 17:35 Dose: 10 mg Sodium Chloride (Saline Flush) 10 ml FLUSH Q8HR PRN PRN Reason: keep vein open Trolamine Salicylate (Aspercreme 10%) 0 gm TOP TID PRN PRN Reason: Pain Discontinued Medications Albuterol/Ipratropium (Duoneb 3.0-0.5 Mg/3 Ml) 3 ml NEB Q4HRRT [facility] Last Admin: 10/18/19 09:12 Dose: 3 ml Bupropion HCl (Wellbutrin Xl) 300 mg PO DAILY [facility] Piperacillin/Tazobactam/ (Dextrose 3.375 gm/ Premix) 50 mls @ 100 mls/hr IV Q6H [facility] Last Admin: 10/17/19 14:01 Dose: 100 mls/hr Sodium Chloride (Normal Saline) Confirm Administered Dose 250 mls @ as directed .ROUTE .STK-MED ONE Stop: 10/16/19 20:44 Last Admin: 10/16/19 20:20 Dose: 25 mls/hr Insulin Glargine (Lantus Solostar) 15 units SUBCUT ONETIME ONE Stop: 10/17/19 21:01 Last Admin: 10/17/19 21:03 Dose: 15 units Methotrexate (Methotrexate) 10 mg PO Q7D [facility] Methylprednisolone Sodium Succinate (Solu-Medrol) 40 mg IVPUSH ONETIME ONE Stop: 10/16/19 19:29 Last Admin: 10/16/19 20:39 Dose: 40 mg - Exam Quality Assessment: Supplemental Oxygen General: Alert, Oriented, Cooperative Neck: Supple Lungs: Normal Respiratory Effort, Rhonchi (Light rhonchus however much improved from yesterday). No: Crackles, Rales, Wheezing Cardiovascular: Regular Rate, Regular Rhythm GI/Abdominal Exam: Normal Bowel Sounds, Non-Tender. No: Distended (Female) Exam: Deferred Back Exam: No: CVA Tenderness (R) Extremities: Pedal Edema Peripheral Pulses: 2+: Radial (L), Radial (R) Skin: Dry Psy/Mental Status: Alert, Normal Affect, Normal Mood Sepsis Event Note - Evaluation Sepsis Screening Result: No Definite Risk - Focused Exam Vital Signs: Vital Signs Temp Pulse Resp BP Pulse Ox Pulse Ox 10/19/19 07:19 84 93 L 10/19/19 07:17 93 L 10/19/19 06:24 96.8 F 77 18 114/60 94 L 10/19/19 05:29 80 95 10/19/19 03:00 97.3 F 68 18 137/71 93 L 10/18/19 23:05 82 94 L 10/18/19 22:53 99.2 F 77 16 121/55 L 95 Date Exam was Performed: 10/19/19 Time Exam was Performed: 09:11 - Problem List Review Problem List Initiated/Reviewed/Updated: Yes - My Orders Last 24 Hours: My Active Orders 10/18/19 09:42 Incentive Spirometry [RT Incentive Spirometry] [RC] Q1HWA 10/18/19 09:52 Budesonide [Pulmicort] 0.5 mg NEB BIDRT 10/18/19 10:10 Albuterol [Proventil Neb Soln] 2.5 mg NEB Q2H PRN 10/18/19 10:45 Furosemide [Lasix] 40 mg IVPUSH DAILY 10/18/19 10:59 Daily Weight [Height and Weight] [RC] 0700 10/18/19 11:00 Albuterol/Ipratropium [DuoNeb 3.0-0.5 MG/3 ML] 3 ml NEB Q6HRRT - Plan Plan:: History summary Ms Friedman is severely obese 79-year-old female who resides in LTC was admitted into inpatient status by Jocelynn Burnett NP secondary hypoxia related to ongoing ~3 day of cough, mucus production. [facility] records reported patient having increased shortness of breath, mucus production with temperatures up to 101. Patient has approximately 20-year pack year history of smoker however quit approximately 5 years ago. She denotes underlying COPD and uses CESAR/AC PRN, which has not provided her any relief of her shortness of breath. Chest x-ray no acute processes, no cardiomegaly. No echocardiogram on file Hospital course to date Day 1: This morning patient ambulatory in room oxygen saturations 95 to 97% on room air. Yesterday upon admission had blood sugar of 51. Negative influenza A /B, normal white count however elevated neutrophilia around 82%, ESR high however trending down, creatinine 1.41--beta from 1.36 on admission. BNP 123 normal lactic acid, Chest x-ray no acute processes, no cardiomegaly, however review chest x-rays 2018 demonstrated borderline cardiomegaly Day 2: Ambulate the patient without oxygen desats 80, response to 92% with oxygen,. ABG yesterday concerning for hypercapnia Laveta sodium bicarb and CO2- -suggetive of OHS however no formal PFTs, overnight oximetry and with recent URI along with nonambulatory state due to hip--mixed picture. Overall feels better, ongoing cough with rhonchus today. Day 3: Much improved since today reduction of Ipratropium along with added Pulmicort with continuous oxygen and lasix. Good output, lung sounds much improved, does have a dry slight barky type cough today. Repeat chest x-ray x- ray demonstrated mild-moderate congestive heart failure with cardiomegaly and interstitial edema with minimal bilateral pleural effusions Primary hospital problems --Suspect OHS with multifactorial components i.e obesity, limited mobility, underlying pulm dz/cardiac dz with suspect CHF, JOSHUA, hypercapnia. --Questionable COPD --Heart Failure, --Type 2 DM: resolved, resume Long acting insulin, and prandial home regimen includes, Novolog 14 units AM, 22 units at noon, 14 units PM; Trulicity 1.5mg weekly, Tresiba 76 units daily --Anemia, macrocytic with anisocytosis, elevated retic ~6 months ago, upon discharge will provide PCP recommendations Chronic hospital problems --Chronic ischemic heart disease: ASA 81mg daily --Essential HTN: Lisinopril 20mg daily --Pedal edema/weight gain: HOLD home Furosemide, metolazone 2.5mg twice a week --Hypokalemia: Potassium 40meq in the AM and 20meq in the PM --Chronic venous insufficiency --Pure hypercholesterolemia: Simvastatin 10mg daily --GERD: Omeprazole 20mg EVERY OTHER DAY --Rheumatoid arthritis: seropositive rheumatoid arthritis, Methotrexate 10mg weekly, prednisone 5mg daily, Acetaminophen ER 650mg three times daily Folic acid 1mg daily for folate deficiency related to methotrexate --Mixed incontinence: oxybutynin ER 10mg daily --Bipolar II disorder/Schizophrenia/Personality disorder: Olanzapine 15mg daily and lamotrigine 100mg daily, Dr Brooks follows. --Drug induced subacute dyskinesia --Alzheimer's disease/Dementia: Donepezil 10mg twice daily --HERNAN: Wellbutrin XL 300mg daily --H/O malignant neoplasm of the breast --Supplements: Vitamin D 2000 units daily --Macular degeneration: Ocuvite daily and Refresh tears Disposition/overall plan --Lasix today reduced Ipratropium and pulmicort --SHARRON stockings. --Will c/s [facility] for overnight oximetry as I suspect she may need CPAP due to her daytime hypercapnia, --DC morning as long as clinical condition continues to improve. will need Oxygen
[2019-10-19] MEDS: Lisinopril 20 MG Tab PO SCH (10:04)
[2019-10-19] MEDS: Lutein/Minerals/Vitamins A, C & E Tab PO SCH (17:40)
[2019-10-19] MEDS: Simvastatin 10 MG Tab PO SCH (17:40)
[2019-10-19] MEDS ORDERED: Methotrexate 2.5 MG Tab PO SCH (20:45)
[2019-10-19] MEDS: OLANZapine 5 MG Tab PO SCH (21:12)
[2019-10-19] MEDS: lamoTRIgine 100 MG Tab PO SCH (21:13)
[2019-10-20] MEDS: Albuterol/Ipratropium 3.0-0.5 MG/3 ML Neb Soln NEB SCH ×4 (06:05→22:16)
[2019-10-20] MEDS: Insulin Aspart 100 Units/ML 3 ML Pen SUBCUT SCH ×4 (08:17→21:17)
[2019-10-20] MEDS: buPROPion 150 MG Tab.ER PO SCH (08:18)
[2019-10-20] MEDS: Cholecalciferol (Vitamin D3) 25 MCG Tab PO SCH (08:18)
[2019-10-20] MEDS: Omeprazole 20 MG Cap.CR PO SCH (08:22)
[2019-10-20] MEDS: Potassium Chloride 10 MEQ Tab.ER PO SCH ×2 (08:22→17:43)
[2019-10-20] MEDS: Donepezil 10 MG Tab PO SCH ×2 (08:23→20:56)
[2019-10-20] MEDS: Aspirin 81 MG Tab.EC PO SCH (08:23)
[2019-10-20] MEDS: Oxybutynin 5 MG Tab.ER PO SCH (08:23)
[2019-10-20] MEDS: Lisinopril 20 MG Tab PO SCH (08:24)
[2019-10-20] MEDS: Folic Acid 1 MG Tab PO SCH (08:26)
[2019-10-20] MEDS: Acetaminophen 650 MG Tab.ER PO SCH ×3 (08:27→20:57)
[2019-10-20] MEDS: Furosemide 40 MG/4 ML VIAL IVPUSH SCH (08:28)
[2019-10-20] MEDS: Carboxymethylcellulose Sodium 0.5% Ophth Soln 15 ML Bottle EYEBOTH SCH ×3 (08:31→21:02)
[2019-10-20] MEDS: Budesonide 0.5 MG/2 ML Neb Susp NEB SCH ×2 (09:12→20:59)
[2019-10-20] MEDS ORDERED: Dexamethasone 4 MG Tab PO ONE (10:40)
--- NOTE | 2019-10-20 10:47 | PCM.PN ---
- General Info Date of Service: 10/20/19 Functional Status: Reports: New Symptoms (Kniffen get Wheeler bark this morning on rounds, nurses reported constant throughout the night) - Review of Systems General: Denies: Fever, Weakness, Fatigue, Malaise Pulmonary: Reports: Shortness of Breath, Cough, Wheezing. Denies: Sputum Cardiovascular: Reports: Dyspnea on Exertion Gastrointestinal: Reports: No Symptoms Genitourinary: Reports: No Symptoms Musculoskeletal: Reports: No Symptoms Skin: Reports: No Symptoms Neurological: Reports: No Symptoms Psychiatric: Reports: No Symptoms - Patient Data Vitals - Most Recent: Last Vital Signs Temp 98.2 F 10/20/19 06:36 Pulse 79 10/20/19 09:16 Resp 20 10/20/19 06:36 BP 126/60 10/20/19 08:24 Pulse Ox 89 L 10/20/19 09:16 Weight - Most Recent: 231 lb 2 oz I&O - Last 24 Hours: Intake & Output 10/19/19 10/20/19 10/20/19 22:59 06:59 14:59 Intake Total 600 0 Output Total 700 500 Balance -100 -500 Lab Results Last 24 Hours: Laboratory Results - last 24 hr 10/19/19 10/19/19 10/19/19 Range/Units 11:50 17:38 21:20 POC Glucose 230 H 201 H 249 H (74-106) mg/dl 10/20/19 Range/Units 06:24 POC Glucose 158 H (74-106) mg/dl Arpan Results Last 24 Hours: Microbiology 10/17/19 19:50 Miscellaneous Reference Culture - Preliminary Wound - Buttock, Right Gram Stain - Final 10/16/19 18:40 Aerobic Blood Culture - Preliminary Blood - Venous - Lab Draw NO GROWTH AFTER 3 DAYS Anaerobic Blood Culture - Preliminary NO GROWTH AFTER 3 DAYS 10/16/19 17:45 Aerobic Blood Culture - Preliminary Blood - Venous NO GROWTH AFTER 3 DAYS Anaerobic Blood Culture - Preliminary NO GROWTH AFTER 3 DAYS 10/17/19 08:50 Respiratory Culture - Preliminary Sputum - Expectorated Gram Stain - Final Med Orders - Current: Current Medications Acetaminophen (Tylenol) 650 mg PO Q4H PRN PRN Reason: Pain or fever Acetaminophen (Tylenol Arthritis Pain) 650 mg PO TID [facility] Last Admin: 10/20/19 08:27 Dose: 650 mg Albuterol (Proventil Neb Soln) 2.5 mg NEB Q2H PRN PRN Reason: sob Albuterol/Ipratropium (Duoneb 3.0-0.5 Mg/3 Ml) 3 ml NEB Q6HRRT [facility] Last Admin: 10/20/19 06:05 Dose: 3 ml Artificial Tears (Refresh Tears 0.5%) 0 ml EYEBOTH TID [facility] Last Admin: 10/20/19 08:31 Dose: 1 drop Aspirin (Halfprin) 81 mg PO DAILY [facility] Last Admin: 10/20/19 08:23 Dose: 81 mg Budesonide (Pulmicort) 0.5 mg NEB BIDRT [facility] Last Admin: 10/20/19 09:12 Dose: 0.5 mg Bupropion HCl (Wellbutrin Xl) 300 mg PO DAILY [facility] Last Admin: 10/20/19 08:18 Dose: 300 mg Cholecalciferol (Vitamin D3) 50 mcg PO DAILY [facility] Last Admin: 10/20/19 08:18 Dose: 50 mcg Donepezil HCl (Aricept) 10 mg PO BID [facility] Last Admin: 10/20/19 08:23 Dose: 10 mg Folic Acid (Folic Acid) 1 mg PO DAILY [facility] Last Admin: 10/20/19 08:26 Dose: 1 mg Furosemide (Lasix) 40 mg IVPUSH DAILY [facility] Last Admin: 10/20/19 08:28 Dose: 40 mg Guaifenesin/Phenylephrine HCl (Robitussin Dm) 10 ml PO Q4H PRN PRN Reason: Cough Last Admin: 10/19/19 21:16 Dose: 10 ml Insulin Aspart (Novolog) 0 unit SUBCUT WITHMEALSANDBED [facility]; Protocol Last Admin: 10/20/19 08:17 Dose: 2 units Lamotrigine (Lamotrigine) 100 mg PO DAILY@2000 [facility] Last Admin: 10/19/19 21:13 Dose: 100 mg Lisinopril (Prinivil) 20 mg PO DAILY [facility] Last Admin: 10/20/19 08:24 Dose: 20 mg Multivitamins/Minerals (Ocuvite) 1 each PO DAILY@1800 [facility] Last Admin: 10/19/19 17:40 Dose: 1 each Olanzapine (Zyprexa) 15 mg PO DAILY@2100 [facility] Last Admin: 10/19/19 21:12 Dose: 15 mg Omeprazole (Omeprazole) 20 mg PO Q48H [facility] Last Admin: 10/20/19 08:22 Dose: 20 mg Oxybutynin Chloride (Oxybutynin Er) 10 mg PO DAILY [facility] Last Admin: 10/20/19 08:23 Dose: 10 mg Trulicity 1.5mg/0. (5ml) 1 each SUBCUT WE@2000 [facility] Last Admin: 10/18/19 20:51 Dose: 1 each Potassium Chloride (Klor-Con 10) 20 meq PO DAILY@1800 [facility] Last Admin: 10/19/19 17:40 Dose: 20 meq Potassium Chloride (Klor-Con 10) 40 meq PO DAILY [facility] Last Admin: 10/20/19 08:22 Dose: 40 meq Simvastatin (Zocor) 10 mg PO DAILY@1800 [facility] Last Admin: 10/19/19 17:40 Dose: 10 mg Sodium Chloride (Saline Flush) 10 ml FLUSH Q8HR PRN PRN Reason: keep vein open Last Admin: 10/20/19 08:28 Dose: 10 ml Trolamine Salicylate (Aspercreme 10%) 0 gm TOP TID PRN PRN Reason: Pain Discontinued Medications Albuterol/Ipratropium (Duoneb 3.0-0.5 Mg/3 Ml) 3 ml NEB Q4HRRT [facility] Last Admin: 10/18/19 09:12 Dose: 3 ml Bupropion HCl (Wellbutrin Xl) 300 mg PO DAILY [facility] Piperacillin/Tazobactam/ (Dextrose 3.375 gm/ Premix) 50 mls @ 100 mls/hr IV Q6H [facility] Last Admin: 10/17/19 14:01 Dose: 100 mls/hr Sodium Chloride (Normal Saline) Confirm Administered Dose 250 mls @ as directed .ROUTE .STK-MED ONE Stop: 10/16/19 20:44 Last Admin: 10/16/19 20:20 Dose: 25 mls/hr Insulin Glargine (Lantus Solostar) 15 units SUBCUT ONETIME ONE Stop: 10/17/19 21:01 Last Admin: 10/17/19 21:03 Dose: 15 units Methotrexate (Methotrexate) 10 mg PO Q7D [facility] Methylprednisolone Sodium Succinate (Solu-Medrol) 40 mg IVPUSH ONETIME ONE Stop: 10/16/19 19:29 Last Admin: 01/27/20 20:39 Dose: 40 mg - Exam Quality Assessment: Supplemental Oxygen General: Alert, Oriented, No Acute Distress Neck: JVD Lungs: Crackles, Rhonchi Cardiovascular: Regular Rate, Regular Rhythm GI/Abdominal Exam: Normal Bowel Sounds, Non-Tender, Distended (No further distention than her chronic baseline) (Female) Exam: Deferred Extremities: Pedal Edema Peripheral Pulses: 2+: Radial (L), Radial (R) Skin: Dry Neurological: No New Focal Deficit Psy/Mental Status: Alert, Normal Affect, Normal Mood Sepsis Event Note - Evaluation Sepsis Screening Result: No Definite Risk - Focused Exam Vital Signs: Vital Signs Temp Pulse Resp BP BP Pulse Ox Pulse Ox 10/20/19 09:16 79 89 L 10/20/19 09:00 90 L 10/20/19 08:24 126/60 10/20/19 06:36 98.2 F 84 20 126/63 93 L 10/20/19 06:15 75 93 L 10/20/19 03:19 95 10/20/19 03:00 97.4 F 75 20 99/52 L 87 L 10/19/19 23:00 97.4 F 71 18 128/57 L 94 L Date Exam was Performed: 10/20/19 Time Exam was Performed: 10:35 - Problem List Review Problem List Initiated/Reviewed/Updated: Yes - Plan Plan:: History summary Ms Friedman is severely obese 79-year-old female who resides in LTC was admitted into inpatient status by Jocelynn Burnett NP secondary hypoxia related to ongoing ~3 day of cough, mucus production. senior living records reported patient having increased shortness of breath, mucus production with temperatures up to 101. Patient has approximately 20-year pack year history of smoker however quit approximately 5 years ago. She denotes underlying COPD and uses CESAR/AC PRN, which has not provided her any relief of her shortness of breath. Chest x-ray no acute processes, no cardiomegaly. No echocardiogram on file Hospital course to date Day 1: This morning patient ambulatory in room oxygen saturations 95 to 97% on room air. Yesterday upon admission had blood sugar of 51. Negative influenza A /B, normal white count however elevated neutrophilia around 82%, ESR high however trending down, creatinine 1.41--beta from 1.36 on admission. BNP 123 normal lactic acid, Chest x-ray no acute processes, no cardiomegaly, however review chest x-rays 2018 demonstrated borderline cardiomegaly Day 2: Ambulate the patient without oxygen desats 80, response to 92% with oxygen,. ABG yesterday concerning for hypercapnia Laveta sodium bicarb and CO2- -suggetive of OHS however no formal PFTs, overnight oximetry and with recent URI along with nonambulatory state due to hip--mixed picture. Overall feels better, ongoing cough with rhonchus today. Day 3: Much improved since today reduction of Ipratropium along with added Pulmicort with continuous oxygen and lasix. Good output, lung sounds much improved, does have a dry slight barky type cough today. Repeat chest x-ray x- ray demonstrated mild-moderate congestive heart failure with cardiomegaly and interstitial edema with minimal bilateral pleural effusions Day 4: Barky Kay croup type cough this morning quite significant on rounds, no respiratory distress. Diuresing well -960 out, no fever, not much change in weight despite output--likely due to to steroid use, Primary hospital problems --Suspect OHS with multifactorial components i.e obesity, limited mobility, underlying pulm dz/cardiac dz with suspect CHF, JOSHUA, hypercapnia. --Questionable COPD --Suspect parainfluenza virus with sx suspicious of croup, 16mg dexamethasone x1 now --Heart Failure, clinical --Type 2 DM: resolved, resume Long acting insulin, and prandial home regimen includes, Novolog 14 units AM, 22 units at noon, 14 units PM; Trulicity 1.5mg weekly, Tresiba 76 units daily --Anemia, macrocytic with anisocytosis, elevated retic ~6 months ago, upon discharge will provide PCP recommendations Chronic hospital problems --Chronic ischemic heart disease: ASA 81mg daily --Essential HTN: Lisinopril 20mg daily --Pedal edema/weight gain: HOLD home Furosemide, metolazone 2.5mg twice a week --Hypokalemia: Potassium 40meq in the AM and 20meq in the PM --Chronic venous insufficiency --Pure hypercholesterolemia: Simvastatin 10mg daily --GERD: Omeprazole 20mg EVERY OTHER DAY --Rheumatoid arthritis: seropositive rheumatoid arthritis, Methotrexate 10mg weekly, prednisone 5mg daily, Acetaminophen ER 650mg three times daily Folic acid 1mg daily for folate deficiency related to methotrexate --Mixed incontinence: oxybutynin ER 10mg daily --Bipolar II disorder/Schizophrenia/Personality disorder: Olanzapine 15mg daily and lamotrigine 100mg daily, Dr Todd corbett. --Drug induced subacute dyskinesia --Alzheimer's disease/Dementia: Donepezil 10mg twice daily --HERNAN: Wellbutrin XL 300mg daily --H/O malignant neoplasm of the breast --Supplements: Vitamin D 2000 units daily --Macular degeneration: Ocuvite daily and Refresh tears Disposition/overall plan --Lasix today reduced Ipratropium and pulmicort --16mg dexamethasone x1 now --SHARRON stockings. --16mg dexamethasone x1 --Restart metaxalone today --Will c/s [facility] for overnight oximetry as I suspect she may need CPAP due to her daytime hypercapnia, likely will have to be done at LTC --Likely can be DC in am back to LTC with close f/u as long as clinical condition continues to improve. will need Oxygen upon DC.
[2019-10-20] MEDS: guaiFENesin/Dextromethorphan 100-10 MG/5 ML Soln 5 ML Cup PO PRN (10:58)
[2019-10-20] MEDS ORDERED: Metolazone 2.5 MG Tab PO SCH (11:00)
[2019-10-20 11:26] LABS: ANION GAP 12.1 mmol/L (5-15)
[2019-10-20] MEDS: Simvastatin 10 MG Tab PO SCH (17:42)
[2019-10-20] MEDS: Lutein/Minerals/Vitamins A, C & E Tab PO SCH (17:42)
[2019-10-20] MEDS: OLANZapine 5 MG Tab PO SCH (20:56)
[2019-10-20] MEDS: lamoTRIgine 100 MG Tab PO SCH (20:56)
[2019-10-21] MEDS: Albuterol/Ipratropium 3.0-0.5 MG/3 ML Neb Soln NEB SCH ×2 (05:15→11:27)
[2019-10-21] MEDS: Insulin Aspart 100 Units/ML 3 ML Pen SUBCUT SCH (08:03)
[2019-10-21 08:16] LABS: ANION GAP 11.1 mmol/L (5-15)
[2019-10-21] MEDS: Budesonide 0.5 MG/2 ML Neb Susp NEB SCH (08:43)
[2019-10-21] MEDS: Folic Acid 1 MG Tab PO SCH (08:46)
[2019-10-21] MEDS: Acetaminophen 650 MG Tab.ER PO SCH (08:46)
[2019-10-21] MEDS: buPROPion 150 MG Tab.ER PO SCH (08:46)
[2019-10-21] MEDS: Aspirin 81 MG Tab.EC PO SCH (08:46)
[2019-10-21] MEDS: Oxybutynin 5 MG Tab.ER PO SCH (08:46)
[2019-10-21] MEDS: Potassium Chloride 10 MEQ Tab.ER PO SCH (08:46)
[2019-10-21] MEDS: Donepezil 10 MG Tab PO SCH (08:46)
[2019-10-21] MEDS: Cholecalciferol (Vitamin D3) 25 MCG Tab PO SCH (08:46)
[2019-10-21] MEDS: Furosemide 40 MG/4 ML VIAL IVPUSH SCH (08:47)
[2019-10-21] MEDS: Carboxymethylcellulose Sodium 0.5% Ophth Soln 15 ML Bottle EYEBOTH SCH (08:48)
[2019-10-21] MEDS: Lisinopril 20 MG Tab PO SCH (08:51)
--- NOTE | 2019-10-21 11:09 | PCM.DCSUM1 ---
Discharge Summary - Discharge Data Discharge Date: 10/21/19 Discharge Disposition: DC/Tfer to [facility] Condition: Good - Referral to Home Health Primary Care Physician: Ronda Weinberg MD - Patient Instructions Diet: Diabetic Diet Activity: As Tolerated (with assistance) Notify Provider of: Fever (increased shortness of breath, low oxygen saturation , chest pain, hypoglycemia), Increased Pain - Discharge Plan *PRESCRIPTION DRUG MONITORING PROGRAM REVIEWED*: Not Applicable *COPY OF PRESCRIPTION DRUG MONITORING REPORT IN PATIENT NICKY: Not Applicable Prescriptions/Med Rec: Budesonide [Pulmicort] 0.5 mg NEB BIDRT #1 box Donepezil HCl 10 mg PO BEDTIME #90 tablet Insulin Aspart [NovoLOG] 10 unit SQ WITHMEALSANDBED #3 pen Home Medications: Home Meds Aspirin [Halfprin] 81 mg PO DAILY 06/21/14 [History] Carboxymethylcellulose Sodium [Refresh Tears 0.5%] 1 drop EYEBOTH TID 06/21/14 [ History] Cholecalciferol (Vitamin D3) [Vitamin D3] 2,000 unit PO DAILY 06/21/14 [History] Folic Acid 1 mg PO DAILY 06/21/14 [History] Furosemide [Lasix] 20 mg PO DAILY 06/21/14 [History] Methotrexate 10 mg PO Q7D 06/21/14 [History] OLANZapine [Zyprexa] 15 mg PO DAILY@2100 06/21/14 [History] Omeprazole 20 mg PO Q48H 06/21/14 [History] Trolamine Salicylate [Arthricreme] 1 applic TOP TID PRN 06/21/14 [History] predniSONE 5 mg PO DAILY 06/21/14 [History] Acetaminophen 650 mg PO Q4H PRN 10/16/19 [History] Dextromethorphan/guaiFENesin [Robitussin DM] 10 ml PO Q4H PRN 10/16/19 [History] Dulaglutide [Trulicity] 1.5 mg SUBCUT WE@199910/16/19 [History] Lisinopril [Zestril] 20 mg PO DAILY 10/16/19 [History] Lutein/Minerals/Vit A,C & E [Ocuvite] 1 tab PO DAILY@1800 10/16/19 [History] Mineral Oil/Petrolatum [Aquaphor Healing Oint] 1 applic TOP DAILY 10/16/19 [ History] Oxybutynin Chloride [Oxybutynin Chloride ER] 10 mg PO DAILY 10/16/19 [History] Potassium Chloride 20 meq PO DAILY@179910/16/19 [History] Potassium Chloride 40 meq PO DAILY 10/16/19 [History] Simvastatin 10 mg PO DAILY@179910/16/19 [History] buPROPion HCl [Wellbutrin Xl] 300 mg PO DAILY 10/16/19 [History] lamoTRIgine 100 mg PO DAILY@199910/16/19 [History] metOLazone [Metolazone] 2.5 mg PO TUFR 10/16/19 [History] Acetaminophen [Acetaminophen ER] 650 mg PO TID #0 10/21/19 [Rx] Albuterol/Ipratropium [DuoNeb 3.0-0.5 MG/3 ML] 3 ml NEB Q6HRRT neb 10/21/19 [Rx ] Budesonide [Pulmicort] 0.5 mg NEB BIDRT #1 box 10/21/19 [Rx] Donepezil HCl 10 mg PO BEDTIME #90 tablet 10/21/19 [Rx] Insulin Aspart [NovoLOG] 10 unit SQ WITHMEALSANDBED #3 pen 10/21/19 [Rx] Insulin Degludec [Tresiba] 40 unit SUBCUT DAILY@1999 #0 10/21/19 [Rx] Oxygen Therapy Mode: Nasal Cannula Oxygen Flow Rate (L/min): 2 Maintain SpO2% greater than: 90 Referrals: Jocelynn Burnett NP [Nurse Practitioner] - 10/25/19 (Follow-up at the [facility]. ) - Discharge Summary/Plan Comment DC Time >30 min.: Yes Discharge Summary/Plan Comment: Date of admission: 10/16/19 Date of discharge: 10/21/19 Admitting diagnosis: Primary: Hypoxia, rule out pneumonia, rule out heart failure exacerbation Secondary: T2DM, Morbid obesity, Anemia macrocytic, Chronic ischemic heart disease, HTN, Pedal edema, Hypokalemia, Chronic venous insufficiency, Hypercholesterolemia, GERD, RA seropositive, Mixed urinary incontinence, Bipolar II disorder/Schizophrenia/Personality disorder, Drug induced subacute dyskinesia, Alzheimer's disease/Dementia, HERNAN, History of malignant breast neoplasm, Macular degeneration, Seizures Final diagnosis: Primary: Hypoxia, Hypercapnia, Obesity hypoventilation syndrome, Clinical heart failure, Suspect JOSHUA, COPD Secondary: T2DM, Morbid obesity, Anemia macrocytic, Chronic ischemic heart disease, HTN, Pedal edema, Hypokalemia, Chronic venous insufficiency, Hypercholesterolemia, GERD, RA seropositive, Mixed urinary incontinence, Bipolar II disorder/Schizophrenia/Personality disorder, Drug induced subacute dyskinesia, Alzheimer's disease/Dementia, HERNAN, History of malignant breast neoplasm, Macular degeneration, Seizures Procedures performed: None Complications: None Brief History: This 79 yo female was admitted from an [facility] d/t 3 days of productive cough and hypoxia. Diagnostic work-up revealed WBC 8.04 with neutrophilia, ESR 49, Hgb 11.5, Creatinine 1.36, negative influenza A/B, BNP 123 , CXR revealed no acute process. She was started on IV zosyn for suspicion of early pneumonia and placed on oxygen. She was also noted to have a glucose of 51 on admission. She resides at [facility], [facility]. Hospital Course: The patient's hospital course was extended beyond the typical timeframe d/t several factors including oxygen desaturations to 80% with ambulation, ABGs concerning for hypercapnia, and a barky seal type cough the day prior to discharge. Sputum culture was negative along with blood cultures x 2. She required IV lasix, IV dexamethasone, and the addition of pulmicort neblizers to her DuoNebs. She had good diuresis with urine output, however weight down only 2 pounds total. She remained afebrile and hemodynamically stable with continuous oxygen per nasal cannula. Her home insulin doses were held and she was given a novolog medium sliding scale while hospitalized. Discharge Labs: WBC 6.53 with 78.2% neutrophils Hgb 10.4, MCV 109.7 Creatinine 1.38 K 5.0 Procalcitonin 0.06 A1c 5.7 New medications at discharge: -Pulmicort 0.5 mg neb BID -Oxygen 2 lpm nasal cannula Changes to home medications at discharge: -DuoNebs QID -Decrease Tresiba to 40 units SQ daily -Decrease Novolog to 10 units QIDAC (hold if fasting glucose 110 or less) -Donepezil 10 mg po at HS Regular home medications on discharge: -Potassium 40 mEq po daily -Potassium 20 mEq po daily at 1800 -Methotrexate 10 mg po weekly -Tylenol 650 mg po q4h PRN -Trolamine Salicylate 1 applic top TID PRN -Aquaphor 1 applic top daily -Robitussin DM 10 mL po q4h PRN -Lamotrigine 100 mg po daily -Olanzapine 15 mg po daily -Trulicity 1.5 mg SQ weekly -Ocuvite 1 tab po daily -Simvastatin 10 mg po daily -Oxybutynin ER 10 mg po daily -Prednisone 5 mg po daily -Metolazone 2.5 mg po daily Tu/Wed. -Wellbutrin XL 300 mg po daily -Omeprazole 20 mg po q48h -Lasix 20 mg po daily -Tylenol ER 650 mg po TID -Lisinopril 20 mg po daily -Folic acid 1 mg po daily -Vitamin D3 2000 units po daily -ASA 81 mg po daily -Refresh tears 1 drop both eyes TID Condition, Treatment, & Final Disposition: The patient is in stable condition at the time of discharge/transfer. She will be discharged back to [facility] with her daughter. She will follow-up at the [facility] with Jocelynn Burnett CNP this coming week. Considerations at follow-up include coordinating an overnight oximetry test with Christal to help determine a diagnosis of JOSHUA, PFTs and/or ECHO if feasible/possible, reviewing fasting glucoses and making adjustments as needed given her tightly controlled A1c as noted above. - General Info Date of Service: 10/21/19 Functional Status: Reports: Pain Controlled, Tolerating Diet, Urinating. Denies : New Symptoms - Review of Systems General: Reports: Weakness, Fatigue, Malaise. Denies: Fever, Chills HEENT: Denies: Headaches, Sinus Congestion, Sore Throat Pulmonary: Reports: Shortness of Breath (improved). Denies: Cough, Sputum Cardiovascular: Reports: Dyspnea on Exertion, Edema. Denies: Chest Pain Gastrointestinal: Reports: No Symptoms Genitourinary: Reports: No Symptoms Neurological: Denies: Dizziness, Headache Psychiatric: Reports: No Symptoms - Patient Data Vitals - Most Recent: Last Vital Signs Temp 97 F 10/21/19 05:10 Pulse 79 10/21/19 08:40 Resp 16 10/21/19 05:10 BP 125/56 L 10/21/19 08:51 Pulse Ox 91 L 10/21/19 09:00 Weight - Most Recent: 231 lb I&O - Last 24 hours: Intake & Output 10/20/19 10/21/19 10/21/19 22:59 06:59 14:59 Intake Total 740 50 Output Total 1100 700 Balance -360 -650 Lab Results - Last 24 hrs: Laboratory Results - last 24 hr 10/20/19 10/20/19 10/20/19 Range/Units 10:59 10:59 12:00 WBC 6.53 (5.00-10.00) 10^3/uL RBC 3.10 L (3.80-5.50) 10^6/uL Hgb 10.4 L (12.0-16.0) g/dL Hct 34.0 L (37.0-47.0) % MCV 109.7 H (82.0-92.0) fL MCH 33.5 H (27.0-31.0) pg MCHC 30.6 L (32.0-36.0) g/dL RDW 16.4 H (11.5-14.5) % Plt Count 157 (150-400) 10^3/uL MPV 9.5 (7.4-10.4) fL Immature Gran % (Auto) 0.3 (0.0-5.0) % Neut % (Auto) 78.2 H (50.0-70.0) % Lymph % (Auto) 6.0 L (20.0-40.0) % Brown % (Auto) 11.9 H (2.0-8.0) % Eos % (Auto) 3.1 H (1.0-3.0) % Baso % (Auto) 0.5 (0.0-1.0) % Immature Gran # (Auto) 0.02 (0.00-0.50) 10^3/uL Neut # (Auto) 5.11 (2.50-7.00) 10^3/uL Lymph # (Auto) 0.39 L (1.00-4.00) 10^3/uL Brown # (Auto) 0.78 (0.10-0.80) 10^3/uL Eos # (Auto) 0.20 (0.10-0.30) 10^3/uL Baso # (Auto) 0.03 (0.00-0.10) 10^3/uL Macrocytosis 1+ slight Sodium 140 (136-145) mmol/L Potassium 4.7 (3.3-5.3) mmol/L Chloride 101 (98-115) mmol/L Carbon Dioxide 31.6 (21.0-32.0) mmol/L Anion Gap 12.1 (5-15) mmol/L BUN 31 H (6-25) mg/dL Creatinine 1.38 H (0.51-1.17) mg/dL Est Cr Clr Drug Dosing 29.26 mL/min Estimated GFR (MDRD) 37 mL/min Glucose 245 H (75 - 99) mg/dL POC Glucose 211 H (74-106) mg/dl Calcium 9.5 (8.7-10.3) mg/dL 10/20/19 10/20/19 10/21/19 Range/Units 17:51 21:16 05:25 WBC (5.00-10.00) 10^3/uL RBC (3.80-5.50) 10^6/uL Hgb (12.0-16.0) g/dL Hct (37.0-47.0) % MCV (82.0-92.0) fL MCH (27.0-31.0) pg MCHC (32.0-36.0) g/dL RDW (11.5-14.5) % Plt Count (150-400) 10^3/uL MPV (7.4-10.4) fL Immature Gran % (Auto) (0.0-5.0) % Neut % (Auto) (50.0-70.0) % Lymph % (Auto) (20.0-40.0) % Brown % (Auto) (2.0-8.0) % Eos % (Auto) (1.0-3.0) % Baso % (Auto) (0.0-1.0) % Immature Gran # (Auto) (0.00-0.50) 10^3/uL Neut # (Auto) (2.50-7.00) 10^3/uL Lymph # (Auto) (1.00-4.00) 10^3/uL Brown # (Auto) (0.10-0.80) 10^3/uL Eos # (Auto) (0.10-0.30) 10^3/uL Baso # (Auto) (0.00-0.10) 10^3/uL Macrocytosis Sodium (136-145) mmol/L Potassium (3.3-5.3) mmol/L Chloride (98-115) mmol/L Carbon Dioxide (21.0-32.0) mmol/L Anion Gap (5-15) mmol/L BUN (6-25) mg/dL Creatinine (0.51-1.17) mg/dL Est Cr Clr Drug Dosing mL/min Estimated GFR (MDRD) mL/min Glucose (75 - 99) mg/dL POC Glucose 238 H 391 H 364 H (74-106) mg/dl Calcium (8.7-10.3) mg/dL 10/21/19 10/21/19 Range/Units 07:20 08:00 WBC (5.00-10.00) 10^3/uL RBC (3.80-5.50) 10^6/uL Hgb (12.0-16.0) g/dL Hct (37.0-47.0) % MCV (82.0-92.0) fL MCH (27.0-31.0) pg MCHC (32.0-36.0) g/dL RDW (11.5-14.5) % Plt Count (150-400) 10^3/uL MPV (7.4-10.4) fL Immature Gran % (Auto) (0.0-5.0) % Neut % (Auto) (50.0-70.0) % Lymph % (Auto) (20.0-40.0) % Brown % (Auto) (2.0-8.0) % Eos % (Auto) (1.0-3.0) % Baso % (Auto) (0.0-1.0) % Immature Gran # (Auto) (0.00-0.50) 10^3/uL Neut # (Auto) (2.50-7.00) 10^3/uL Lymph # (Auto) (1.00-4.00) 10^3/uL Brown # (Auto) (0.10-0.80) 10^3/uL Eos # (Auto) (0.10-0.30) 10^3/uL Baso # (Auto) (0.00-0.10) 10^3/uL Macrocytosis Sodium 138 (136-145) mmol/L Potassium 5.0 (3.3-5.3) mmol/L Chloride 101 (98-115) mmol/L Carbon Dioxide 30.9 (21.0-32.0) mmol/L Anion Gap 11.1 (5-15) mmol/L BUN 33 H (6-25) mg/dL Creatinine 1.34 H (0.51-1.17) mg/dL Est Cr Clr Drug Dosing 30.13 mL/min Estimated GFR (MDRD) 38 mL/min Glucose 359 H (75 - 99) mg/dL POC Glucose 374 H (74-106) mg/dl Calcium 9.3 (8.7-10.3) mg/dL BRYANNA Results - Last 24 hrs: Microbiology 10/16/19 18:40 Aerobic Blood Culture - Preliminary Blood - Venous - Lab Draw NO GROWTH AFTER 4 DAYS Anaerobic Blood Culture - Preliminary NO GROWTH AFTER 4 DAYS 10/16/19 17:45 Aerobic Blood Culture - Preliminary Blood - Venous NO GROWTH AFTER 4 DAYS Anaerobic Blood Culture - Preliminary NO GROWTH AFTER 4 DAYS 10/17/19 08:50 Respiratory Culture - Final Sputum - Expectorated Gram Stain - Final 10/17/19 19:50 Miscellaneous Reference Culture - Preliminary Wound - Buttock, Right Gram Stain - Final Med Orders - Current: Current Medications Acetaminophen (Tylenol) 650 mg PO Q4H PRN PRN Reason: Pain or fever Acetaminophen (Tylenol Arthritis Pain) 650 mg PO TID [facility] Last Admin: 10/21/19 08:46 Dose: 650 mg Albuterol (Proventil Neb Soln) 2.5 mg NEB Q2H PRN PRN Reason: sob Albuterol/Ipratropium (Duoneb 3.0-0.5 Mg/3 Ml) 3 ml NEB Q6HRRT [facility] Last Admin: 10/21/19 05:15 Dose: 3 ml Artificial Tears (Refresh Tears 0.5%) 0 ml EYEBOTH TID [facility] Last Admin: 10/21/19 08:48 Dose: 1 drop Aspirin (Halfprin) 81 mg PO DAILY [facility] Last Admin: 10/21/19 08:46 Dose: 81 mg Budesonide (Pulmicort) 0.5 mg NEB BIDRT [facility] Last Admin: 10/21/19 08:43 Dose: 0.5 mg Bupropion HCl (Wellbutrin Xl) 300 mg PO DAILY [facility] Last Admin: 10/21/19 08:46 Dose: 300 mg Cholecalciferol (Vitamin D3) 50 mcg PO DAILY [facility] Last Admin: 10/21/19 08:46 Dose: 50 mcg Donepezil HCl (Aricept) 10 mg PO BID [facility] Last Admin: 10/21/19 08:46 Dose: 10 mg Folic Acid (Folic Acid) 1 mg PO DAILY [facility] Last Admin: 10/21/19 08:46 Dose: 1 mg Furosemide (Lasix) 40 mg IVPUSH DAILY [facility] Last Admin: 10/21/19 08:47 Dose: 40 mg Guaifenesin/Phenylephrine HCl (Robitussin Dm) 10 ml PO Q4H PRN PRN Reason: Cough Last Admin: 10/20/19 10:58 Dose: 10 ml Insulin Aspart (Novolog) 0 unit SUBCUT WITHMEALSANDBED [facility]; Protocol Last Admin: 10/21/19 08:03 Dose: 10 units Lamotrigine (Lamotrigine) 100 mg PO DAILY@1999 [facility] Last Admin: 10/20/19 20:56 Dose: 100 mg Lisinopril (Prinivil) 20 mg PO DAILY [facility] Last Admin: 10/21/19 08:51 Dose: 20 mg Metolazone (Zaroxolyn) 2.5 mg PO TUFR [facility] Last Admin: 10/20/19 10:59 Dose: 2.5 mg Multivitamins/Minerals (Ocuvite) 1 each PO DAILY@1800 [facility] Last Admin: 10/20/19 17:42 Dose: 1 each Olanzapine (Zyprexa) 15 mg PO DAILY@2100 [facility] Last Admin: 10/20/19 20:56 Dose: 15 mg Omeprazole (Omeprazole) 20 mg PO Q48H [facility] Last Admin: 10/20/19 08:22 Dose: 20 mg Oxybutynin Chloride (Oxybutynin Er) 10 mg PO DAILY [facility] Last Admin: 10/21/19 08:46 Dose: 10 mg Trulicity 1.5mg/0. (5ml) 1 each SUBCUT WE@1999 [facility] Last Admin: 10/18/19 20:51 Dose: 1 each Potassium Chloride (Klor-Con 10) 20 meq PO DAILY@1800 [facility] Last Admin: 10/20/19 17:43 Dose: 20 meq Potassium Chloride (Klor-Con 10) 40 meq PO DAILY [facility] Last Admin: 10/21/19 08:46 Dose: 40 meq Simvastatin (Zocor) 10 mg PO DAILY@1800 [facility] Last Admin: 10/20/19 17:42 Dose: 10 mg Sodium Chloride (Saline Flush) 10 ml FLUSH Q8HR PRN PRN Reason: keep vein open Last Admin: 10/20/19 08:28 Dose: 10 ml Trolamine Salicylate (Aspercreme 10%) 0 gm TOP TID PRN PRN Reason: Pain Discontinued Medications Albuterol/Ipratropium (Duoneb 3.0-0.5 Mg/3 Ml) 3 ml NEB Q4HRRT [facility] Last Admin: 10/18/19 09:12 Dose: 3 ml Bupropion HCl (Wellbutrin Xl) 300 mg PO DAILY [facility] Dexamethasone (Dexamethasone) 16 mg PO ONETIME ONE Stop: 10/20/19 10:41 Last Admin: 10/20/19 10:57 Dose: 16 mg Piperacillin/Tazobactam/ (Dextrose 3.375 gm/ Premix) 50 mls @ 100 mls/hr IV Q6H [facility] Last Admin: 10/17/19 14:01 Dose: 100 mls/hr Sodium Chloride (Normal Saline) Confirm Administered Dose 250 mls @ as directed .ROUTE .STK-MED ONE Stop: 10/16/19 20:44 Last Admin: 10/16/19 20:20 Dose: 25 mls/hr Insulin Glargine (Lantus Solostar) 15 units SUBCUT ONETIME ONE Stop: 10/17/19 21:01 Last Admin: 10/17/19 21:03 Dose: 15 units Methotrexate (Methotrexate) 10 mg PO Q7D [facility] Methylprednisolone Sodium Succinate (Solu-Medrol) 40 mg IVPUSH ONETIME ONE Stop: 10/16/19 19:29 Last Admin: 10/16/19 20:39 Dose: 40 mg - Exam Quality Assessment: Reports: Supplemental Oxygen (92% on 2 liters per nasal cannula), DVT Prophylaxis (Jimmy john) General: Reports: Alert, Oriented, Cooperative, No Acute Distress, Other ( morbidly obese) Lungs: Reports: Normal Respiratory Effort, Wheezing (faint expiratory wheezes t/ o lung elena). Denies: Crackles, Rhonchi Cardiovascular: Reports: Regular Rate, Regular Rhythm, No Murmurs Extremities: Other (trace pitting edema to BLE) Skin: Reports: Warm, Dry Neurological: Reports: Normal Speech Psy/Mental Status: Reports: Alert, Normal Affect, Normal Mood
== END 2019-10-21 12:00 | DRG 206 ==
LOC: KA.MS 17:00 → UNDOADMIN 17:06 → KA.MS 17:06
PROVIDERS: ADMIT Nurse Practitioner Family; ATTEND Nurse Practitioner Family
DX: E66.2 Morbid (severe) obesity with alveolar hypoventilation (principal); D53.9 Nutritional anemia, unspecified; E87.6 Hypokalemia; E11.649 Type 2 diabetes mellitus with hypoglycemia without coma; I87.2 Venous insufficiency (chronic) (peripheral); E78.00 Pure hypercholesterolemia, unspecified; I11.0 Hypertensive heart disease with heart failure; I50.9 Heart failure, unspecified; K21.9 Gastro-esophageal reflux disease without esophagitis; M06.9 Rheumatoid arthritis, unspecified; N39.46 Mixed incontinence; F31.9 Bipolar disorder, unspecified; F20.9 Schizophrenia, unspecified; G24.9 Dystonia, unspecified; G30.9 Alzheimer's disease, unspecified; F02.80 Dementia in other diseases classified elsewhere, unspecified severity, without behavioral disturbance, psychotic disturbance, mood disturbance, and anxiety; H35.30 Unspecified macular degeneration; J44.9 Chronic obstructive pulmonary disease, unspecified; I25.9 Chronic ischemic heart disease, unspecified; F41.1 Generalized anxiety disorder; Z79.52 Long term (current) use of systemic steroids; Z88.8 Allergy status to other drugs, medicaments and biological substances; Z85.3 Personal history of malignant neoplasm of breast; Z79.82 Long term (current) use of aspirin; Z79.899 Other long term (current) drug therapy; Z79.4 Long term (current) use of insulin
CPT/HCPCS: 36415; 36600; 71046; 80048; 82803; 82962; 83036; 83605; 83880; 84145; 85007; 85025; 85027; 85651; 87040; 87070; 87205; 87804; 94640; A9270-GY; J1815-GY; J1940; J2543; J2930; J7050; J7620-GY; J8540

== ENCOUNTER 2022-07-30 11:02 | Observation (INO) | payer MEDICARE, BC, MEDICAID ==
[2022-07-30 11:52] LABS: ANION GAP 12.5 mmol/L (5-15)
[2022-07-30 12:14] LABS: PTT,PARTIAL THROMBOPLSTIN TIME 21.2 SEC (22.8-31.4)
[2022-07-30] MEDS: Sodium Chloride 0.9% 1,000 ML IV SCH ×2 (12:15→19:54)
[2022-07-30] MEDS ORDERED: Albuterol/Ipratropium 3.0-0.5 MG/3 ML Neb Soln NEB PRN (14:13)
[2022-07-30] MEDS ORDERED: Carboxymethylcellulose Sodium 0.5% Ophth Soln 15 ML Bottle EYEBOTH PRN (15:36)
[2022-07-30] MEDS: Pantoprazole 40 MG Vial IVPUSH SCH ×2 (15:36→20:35)
[2022-07-30] MEDS: Acetaminophen 500 MG Tab PO SCH ×2 (15:40→20:36)
[2022-07-30] MEDS ORDERED: 50% Dextrose in Water 50 ML Syringe IVPUSH PRN (16:52)
[2022-07-30] MEDS ORDERED: Glucagon,Human Recombinant 1 MG Vial IM PRN (16:52)
[2022-07-30] MEDS: Insulin Lispro 100 Unit/ML 3 ML KwikPen SUBCUT SCH (18:01)
[2022-07-30] MEDS: Budesonide 0.5 MG/2 ML Neb Susp NEB SCH (19:54)
[2022-07-30] MEDS ORDERED: lamoTRIgine 100 MG Tab PO SCH (20:00)
[2022-07-30] MEDS ORDERED: Carboxymethylcellulose Sodium 0.5% Ophth Soln 15 ML Bottle EYEBOTH SCH (21:00)
[2022-07-30] MEDS ORDERED: OLANZapine 5 MG Tab PO SCH (21:00)
[2022-07-30] MEDS ORDERED: Oxybutynin 5 MG Tab.ER PO SCH (21:00)
[2022-07-30] MEDS ORDERED: Donepezil 10 MG Tab PO SCH (21:00)
[2022-07-30] MEDS ORDERED: Melatonin 3 MG Tab PO SCH (21:00)
[2022-07-31] MEDS ORDERED: Furosemide 40 MG/4 ML VIAL IVPUSH ONE (02:23)
[2022-07-31] MEDS: Insulin Lispro 100 Unit/ML 3 ML KwikPen SUBCUT SCH ×2 (07:44→11:43)
[2022-07-31] MEDS ORDERED: Ascorbic Acid 500 MG Tab PO SCH (08:00)
[2022-07-31] MEDS ORDERED: Ferrous Sulfate 325 MG Tab PO SCH (08:00)
[2022-07-31] MEDS: Pantoprazole 40 MG Vial IVPUSH SCH (08:47)
[2022-07-31] MEDS: Acetaminophen 500 MG Tab PO SCH (08:48)
[2022-07-31] MEDS: Budesonide 0.5 MG/2 ML Neb Susp NEB SCH (08:57)
[2022-07-31] MEDS ORDERED: Folic Acid 1 MG Tab PO SCH (09:00)
[2022-07-31] MEDS ORDERED: Cholecalciferol (Vitamin D3) 25 MCG Tab PO SCH (09:00)
== END 2022-07-31 12:00 ==
LOC: KA.ED 11:02 → INTOOBSV 13:10 → KA.MS 13:10
PROVIDERS: ADMIT Nurse Practitioner Family; ATTEND Family Medicine
DX: D50.0 Iron deficiency anemia secondary to blood loss (chronic) (principal); I11.0 Hypertensive heart disease with heart failure; I50.9 Heart failure, unspecified; J44.9 Chronic obstructive pulmonary disease, unspecified; E78.5 Hyperlipidemia, unspecified; K21.9 Gastro-esophageal reflux disease without esophagitis; F41.9 Anxiety disorder, unspecified; F32.A Depression, unspecified; F31.9 Bipolar disorder, unspecified; F20.9 Schizophrenia, unspecified; E11.9 Type 2 diabetes mellitus without complications; E66.9 Obesity, unspecified; Z68.30 Body mass index [BMI] 30.0-30.9, adult; Z79.82 Long term (current) use of aspirin; Z79.4 Long term (current) use of insulin; Z79.899 Other long term (current) drug therapy; Z90.13 Acquired absence of bilateral breasts and nipples; Z98.890 Other specified postprocedural states; Z96.652 Presence of left artificial knee joint; Z88.8 Allergy status to other drugs, medicaments and biological substances
CPT/HCPCS: 36415; 80053; 81001; 82272; 82947; 85025; 85610; 85730; 87086; 87088; 94640; 99284; A9270-GY; C9113; J1815-GY; J1940; J7030; P9016